=== PATIENT | female | born 1950 | race Hispanic/Latino ===

== ENCOUNTER → 2019-10-29 | Outpatient (CLI) | payer MEDICARE ==
[2019-10-29 09:26] LABS: BASOPHILS % (AUTO) 0.5 % (0.0-5.0); EOSINOPHILS % (AUTO) 4.4 % (0.0-8.0); HEMATOCRIT 33.1 % (36-48); LYMPHOCYTES % (AUTO) 19.6 % (21.0-51.0); MEAN CORPUSCULAR HEMOGLOBIN 26.2 pg (27.0-33.0); MEAN CORPUSCULAR HGB CONC 31.1 g/dL (32.0-36.0); MEAN CORPUSCULAR VOLUME 84.2 fL (79-99); MONOCYTES % (AUTO) 6.5 % (3.0-13.0); NEUTROPHILS % (AUTO) 68.8 % (40.0-77.0); PLATELET COUNT (AUTO) 195 K/uL (130-400); RED BLOOD CELL COUNT(AUTO) 3.93 MIL/uL (4.00-5.50); RED CELL DISTRIBUTION WIDTH 19.1 % (11.0-15.5); WHITE BLOOD COUNT (AUTO) 8.6 K/uL (4.8-10.8)
[2019-10-29 09:31] LABS: APPEARANCE,URINE Clear (CLEAR); BILIRUBIN,URINE Negative (NEGATIVE); COLOR,URINE Yellow (YELLOW); GLUCOSE, URINE (UA) Negative (NEGATIVE); KETONES,URINE Negative (NEGATIVE); LEUKOCYTE ESTERASE ,URINE Negative (NEGATIVE); NITRATE,URINE Negative (NEGATIVE); OCCULT BLOOD,URINE Negative (NEGATIVE); PH,URINE 5.5 (5.0-8.0); PROTEIN,URINE 300 mg/dL (NEGATIVE); UROBILINOGEN,URINE 0.2 mg/dL (0.2-1.0)
[2019-10-29 09:36] LABS: HEMOGLOBIN A1C 7.9 % (4.0-6.0)
[2019-10-29 09:49] LABS: ALBUMIN 2.7 g/dL (3.5-5.0); BILIRUBIN,TOTAL 0.3 mg/dL (0.2-1.0); CREATININE 2.6 mg/dL (0.5-1.5); POTASSIUM 4.8 mmol/L (3.5-5.1); TOTAL PROTEIN, SERUM 6.7 g/dL (6.0-8.3)
[2019-10-29 09:53] LABS: BACTERIA,URINE Rare /HPF (None Seen); RBC,URINE 0-1 /HPF (0-1); SQUAMOUS EPITHELIAL CELL,UR Rare /HPF (0-2)
== END | disposition home or self-care (01) ==
LOC: LAB 08:38
PROVIDERS: ATTEND Internal Medicine Nephrology
DX: E11.22 Type 2 diabetes mellitus with diabetic chronic kidney disease (principal); N18.4 Chronic kidney disease, stage 4 (severe)
CPT/HCPCS: 36415; 80053; 80061; 81001; 82043; 83036; 85025

== ENCOUNTER 2020-07-14 21:35 | Inpatient (IN) | payer MEDICARE ==
[~2020-07-14] VITALS: Ht 160 cm; Wt 83.7 kg
[2020-07-14] MEDS ORDERED: ONDANSETRON 4MG INJ ONE (22:06)
[2020-07-14] MEDS ORDERED: 0.9%NACL 1000ML 1,000 ML IV ONE (22:07)
[2020-07-14 22:13] LABS: BASOPHILS % (AUTO) 0.6 % (0.0-5.0); EOSINOPHILS % (AUTO) 2.8 % (0.0-8.0); HEMATOCRIT 39.3 % (36-48); LYMPHOCYTES % (AUTO) 15.3 % (21.0-51.0); MEAN CORPUSCULAR HEMOGLOBIN 28.2 pg (27.0-33.0); MEAN CORPUSCULAR HGB CONC 32.8 g/dL (32.0-36.0); MONOCYTES % (AUTO) 7.6 % (3.0-13.0); NEUTROPHILS % (AUTO) 73.5 % (40.0-77.0); PLATELET COUNT (AUTO) 201 K/uL (130-400); RED BLOOD CELL COUNT(AUTO) 4.57 MIL/uL (4.00-5.50); RED CELL DISTRIBUTION WIDTH 18.7 % (11.0-15.5); WHITE BLOOD COUNT (AUTO) 8.6 K/uL (4.8-10.8)
[2020-07-14] MEDS ORDERED: ACETAMINOPHEN 500 MG TABLET ONE (22:22)
[2020-07-14 22:26] LABS: CREATININE 3.1 mg/dL (0.5-1.5); POTASSIUM 3.5 mmol/L (3.5-5.1)
[2020-07-14 22:30] LABS: ALBUMIN 3.8 g/dL (3.5-5.0); BILIRUBIN,TOTAL 0.4 mg/dL (0.2-1.0); INR 1.03 (0.85-1.15); PROTHROMBIN TIME 11.2 SEC (9.6-11.6); TOTAL PROTEIN, SERUM 8.3 g/dL (6.0-8.3)
[2020-07-14 22:31] LABS: PARTIAL THROMBOPLASTIN TIME 28.9 SEC (26.3-35.5)
[2020-07-14] MEDS ORDERED: LACTULOSE 20 GM/30 ML UDCUP ONE (22:54)
[2020-07-14] MEDS ORDERED: ASPIRIN 325 MG TABLET ONE (23:11)
[2020-07-15] VITALS (7 sets, daily range): BP systolic 126–179; BP diastolic 50–76
[2020-07-15 03:36] LABS: APPEARANCE,URINE Clear (CLEAR); BILIRUBIN,URINE Negative (NEGATIVE); COLOR,URINE Yellow (YELLOW); GLUCOSE, URINE (UA) Negative (NEGATIVE); KETONES,URINE Negative (NEGATIVE); LEUKOCYTE ESTERASE ,URINE Trace (NEGATIVE); NITRATE,URINE Negative (NEGATIVE); OCCULT BLOOD,URINE Negative (NEGATIVE); PROTEIN,URINE 300 mg/dL (NEGATIVE); UROBILINOGEN,URINE 0.2 mg/dL (0.2-1.0)
[2020-07-15 03:43] LABS: BACTERIA,URINE None Seen /HPF (None Seen)
[2020-07-15 03:44] LABS: RBC,URINE None Seen /HPF (0-1); SQUAMOUS EPITHELIAL CELL,UR Few /HPF (0-2); WBC,URINE 0-1 /HPF (0-1)
[2020-07-15 03:55] LABS: BASOPHILS % (AUTO) 0.7 % (0.0-5.0); EOSINOPHILS % (AUTO) 2.8 % (0.0-8.0); LYMPHOCYTES % (AUTO) 18.4 % (21.0-51.0); MEAN CORPUSCULAR HEMOGLOBIN 28.1 pg (27.0-33.0); MEAN CORPUSCULAR HGB CONC 32.6 g/dL (32.0-36.0); MEAN CORPUSCULAR VOLUME 86.1 fL (79-99); NEUTROPHILS % (AUTO) 66.9 % (40.0-77.0); PLATELET COUNT (AUTO) 185 K/uL (130-400); RED BLOOD CELL COUNT(AUTO) 3.95 MIL/uL (4.00-5.50); RED CELL DISTRIBUTION WIDTH 18.4 % (11.0-15.5); WHITE BLOOD COUNT (AUTO) 8.6 K/uL (4.8-10.8)
[2020-07-15 04:24] LABS: ALBUMIN 3.2 g/dL (3.5-5.0); BILIRUBIN,TOTAL 0.4 mg/dL (0.2-1.0); CREATININE 3.3 mg/dL (0.5-1.5); POTASSIUM 3.5 mmol/L (3.5-5.1); TOTAL PROTEIN, SERUM 7.3 g/dL (6.0-8.3)
[2020-07-15] MEDS: LACTULOSE 20 GM/30 ML UDCUP PO SCH ×3 (06:00→17:34)
[2020-07-15] MEDS ORDERED: METOCLOPRAMIDE 10 MG TABLET PO SCH (12:00)
[2020-07-15] MEDS ORDERED: ONDANSETRON 4MG INJ IVP PRN (12:00)
[2020-07-15] MEDS ORDERED: PANTOPRAZOLE 40 MG/VIAL ONE (12:36)
[2020-07-15] MEDS: PANTOPRAZOLE 40 MG/VIAL IVP SCH (12:37)
[2020-07-15] MEDS: CEFTRIAXONE 1G VIAL IVP SCH (12:38)
[2020-07-15] MEDS: METRONIDAZOLE 500 MG TABLET PO SCH ×3 (12:38→23:58)
[2020-07-15] MEDS: METOCLOPRAMIDE 5 MG TABLET PO SCH (17:33)
[2020-07-15] MEDS: 1/2 NS 1000ML 1,000 ML IV SCH (17:34)
[2020-07-15] MEDS: HYDRALAZINE 25MG TABLET PO SCH (23:00)
[2020-07-15] MEDS: CLONIDINE HCL 0.1 MG TABLET PO PRN (23:59)
[2020-07-16] VITALS (7 sets, daily range): BP systolic 137–179; BP diastolic 67–76
[2020-07-16] MEDS: LACTULOSE 20 GM/30 ML UDCUP PO SCH ×4 (06:00→18:00)
[2020-07-16] MEDS: CLONIDINE HCL 0.1 MG TABLET PO PRN (06:03)
[2020-07-16 06:09] LABS: BASOPHILS % (AUTO) 0.6 % (0.0-5.0); EOSINOPHILS % (AUTO) 3.7 % (0.0-8.0); HEMATOCRIT 35.7 % (36-48); LYMPHOCYTES % (AUTO) 17.4 % (21.0-51.0); MEAN CORPUSCULAR HEMOGLOBIN 29.1 pg (27.0-33.0); MEAN CORPUSCULAR HGB CONC 33.1 g/dL (32.0-36.0); MEAN CORPUSCULAR VOLUME 87.9 fL (79-99); MONOCYTES % (AUTO) 10.5 % (3.0-13.0); NEUTROPHILS % (AUTO) 67.6 % (40.0-77.0); PLATELET COUNT (AUTO) 191 K/uL (130-400); RED BLOOD CELL COUNT(AUTO) 4.06 MIL/uL (4.00-5.50); RED CELL DISTRIBUTION WIDTH 19.1 % (11.0-15.5); WHITE BLOOD COUNT (AUTO) 8.1 K/uL (4.8-10.8)
[2020-07-16 06:31] LABS: ALBUMIN 3.2 g/dL (3.5-5.0); BILIRUBIN,DIRECT 0.1 mg/dL (0.0-0.3); BILIRUBIN,TOTAL 0.3 mg/dL (0.2-1.0); CREATININE 4.3 mg/dL (0.5-1.5); PHOSPHORUS 5.6 mg/dL (2.5-4.9); POTASSIUM 3.4 mmol/L (3.5-5.1); TOTAL PROTEIN, SERUM 6.9 g/dL (6.0-8.3)
[2020-07-16] MEDS ORDERED: PANTOPRAZOLE 40 MG/VIAL ONE (10:15)
[2020-07-16] MEDS: CEFTRIAXONE 1G VIAL IVP SCH (10:17)
[2020-07-16] MEDS: PANTOPRAZOLE 40 MG/VIAL IVP SCH (10:17)
[2020-07-16] MEDS ORDERED: 0.9%NACL 1000ML IV PRN (11:30)
[2020-07-16] MEDS ORDERED: ALBUMIN FOR BP SUPPORT MISC PRN (11:30)
[2020-07-16] MEDS ORDERED: HEPARIN 5,000 UNIT VIAL IJ PRN ×2 (11:30)
[2020-07-16] MEDS ORDERED: NITROGLYCERIN 0.4 MG SL TAB SL PRN (11:30)
[2020-07-16] MEDS ORDERED: ACETAMINOPHEN 325 MG TAB PO PRN (11:30)
[2020-07-16] MEDS ORDERED: 0.9%NACL 1000ML 1,000 ML IV PRN (11:30)
[2020-07-16] MEDS ORDERED: LIDOCAINE HCL-MPF 1% 2ML VIAL IJ PRN (11:30)
[2020-07-16] MEDS: METOCLOPRAMIDE 5 MG TABLET PO SCH ×3 (12:00→18:39)
[2020-07-16] MEDS: LISINOPRIL 20 MG TABLET PO SCH (16:07)
[2020-07-16] MEDS: ISOSORBIDE MONO 30MG SR TAB PO SCH (16:08)
[2020-07-16] MEDS: HYDRALAZINE 25MG TABLET PO SCH ×4 (16:08→21:19)
[2020-07-16] MEDS: METRONIDAZOLE 500 MG TABLET PO SCH ×2 (16:08→18:39)
[2020-07-16] MEDS: 1/2 NS 1000ML 1,000 ML IV SCH ×2 (16:09→20:48)
[2020-07-17] VITALS (7 sets, daily range): BP systolic 144–180; BP diastolic 72–92
[2020-07-17] MEDS: LACTULOSE 20 GM/30 ML UDCUP PO SCH ×6 (00:14→18:00)
[2020-07-17] MEDS: METRONIDAZOLE 500 MG TABLET PO SCH (00:14)
[2020-07-17] MEDS: CLONIDINE HCL 0.1 MG TABLET PO PRN ×2 (00:15→04:12)
[2020-07-17 06:51] LABS: HEMATOCRIT 41.7 % (36-48); MEAN CORPUSCULAR HEMOGLOBIN 28.4 pg (27.0-33.0); MEAN CORPUSCULAR HGB CONC 31.9 g/dL (32.0-36.0); MEAN CORPUSCULAR VOLUME 89.1 fL (79-99); PLATELET COUNT (AUTO) 189 K/uL (130-400); RED BLOOD CELL COUNT(AUTO) 4.68 MIL/uL (4.00-5.50); RED CELL DISTRIBUTION WIDTH 19.7 % (11.0-15.5); WHITE BLOOD COUNT (AUTO) 10.2 K/uL (4.8-10.8)
[2020-07-17 07:13] LABS: HEPATITIS A ANTIBODY IGM Negative (Negative); HEPATITIS B CORE IGM Negative (Negative); HEPATITIS Bs ANTIGEN SCREEN P Negative (Negative)
[2020-07-17 08:26] LABS: BASOPHILS % (MANUAL) 1 % (0-2); LYMPHOCYTES % (MANUAL) 4 % (22-44); MAN.DIFF COMMENT-IMPRESSION MANUAL DIFFERENTIAL; MONOCYTES % (MANUAL) 7 % (2-9); SEGMENTED NEUTROPHILS % 88 % (40-70)
[2020-07-17 08:27] LABS: PLATELET MORPHOLOGY COMMENT ADEQUATE
[2020-07-17] MEDS: LISINOPRIL 20 MG TABLET PO SCH (09:00)
[2020-07-17] MEDS ORDERED: PANTOPRAZOLE 40 MG/VIAL ONE (10:01)
[2020-07-17] MEDS: METOCLOPRAMIDE 5 MG TABLET PO SCH ×3 (10:09→17:00)
[2020-07-17] MEDS: ISOSORBIDE MONO 30MG SR TAB PO SCH (10:10)
[2020-07-17] MEDS: HYDRALAZINE 25MG TABLET PO SCH ×4 (10:10→21:15)
[2020-07-17] MEDS: CEFTRIAXONE 1G VIAL IVP SCH (10:11)
[2020-07-17] MEDS: 1/2 NS 1000ML 1,000 ML IV SCH (10:12)
[2020-07-17] MEDS: PANTOPRAZOLE 40 MG/VIAL IVP SCH (10:12)
[2020-07-17 11:25] LABS: POTASSIUM 3.9 mmol/L (3.5-5.1)
[2020-07-17 11:32] LABS: ALBUMIN 3.8 g/dL (3.5-5.0); BILIRUBIN,TOTAL 0.5 mg/dL (0.2-1.0); TOTAL PROTEIN, SERUM 8.1 g/dL (6.0-8.3)
[2020-07-18] VITALS (7 sets, daily range): BP systolic 158–204; BP diastolic 73–119
[2020-07-18] MEDS ORDERED: HYDRALAZINE 20MG/ML VIAL IV SCH (05:15)
[2020-07-18 05:27] LABS: POTASSIUM 3.4 mmol/L (3.5-5.1)
[2020-07-18 05:31] LABS: ALBUMIN 3.6 g/dL (3.5-5.0); BILIRUBIN,TOTAL 0.5 mg/dL (0.2-1.0); TOTAL PROTEIN, SERUM 7.9 g/dL (6.0-8.3)
[2020-07-18] MEDS: HYDRALAZINE 20MG/ML VIAL IV PRN ×2 (05:34→17:09)
[2020-07-18] MEDS: LACTULOSE 20 GM/30 ML UDCUP PO SCH ×4 (06:00→17:39)
[2020-07-18] MEDS: METOCLOPRAMIDE 5 MG TABLET PO SCH ×3 (08:00→17:00)
[2020-07-18] MEDS: PANTOPRAZOLE 40 MG/VIAL IVP SCH (09:00)
[2020-07-18] MEDS: HYDRALAZINE 25MG TABLET PO SCH ×4 (09:00→21:00)
[2020-07-18] MEDS: ISOSORBIDE MONO 30MG SR TAB PO SCH (09:00)
[2020-07-18] MEDS: CEFTRIAXONE 1G VIAL IVP SCH (09:00)
[2020-07-18] MEDS: LISINOPRIL 20 MG TABLET PO SCH (09:00)
[2020-07-18] MEDS: METOPROLOL TARTRATE 50 MG TAB PO SCH ×2 (09:00→21:00)
[2020-07-18] MEDS: METOPROLOL TARTRATE 1 MG/ML 5ML VIAL IV SCH ×3 (11:03→20:10)
[2020-07-18] MEDS: CLONIDINE 0.1 MG/ 24 HR PATCH TD SCH (11:03)
[2020-07-18] MEDS: HYDRALAZINE 20MG/ML VIAL IV SCH (17:30)
[2020-07-19] VITALS (7 sets, daily range): BP systolic 113–163; BP diastolic 46–80
[2020-07-19] MEDS: METOPROLOL TARTRATE 1 MG/ML 5ML VIAL IV SCH ×6 (00:17→23:59)
[2020-07-19] MEDS: HYDRALAZINE 20MG/ML VIAL IV SCH ×4 (01:51→13:30)
[2020-07-19] MEDS: LACTULOSE 20 GM/30 ML UDCUP PO SCH ×4 (06:00→18:00)
[2020-07-19] MEDS: METOCLOPRAMIDE 5 MG TABLET PO SCH ×3 (08:00→17:00)
[2020-07-19] MEDS ORDERED: PANTOPRAZOLE 40 MG/VIAL ONE (08:42)
[2020-07-19] MEDS: CEFTRIAXONE 1G VIAL IVP SCH (08:53)
[2020-07-19] MEDS: PANTOPRAZOLE 40 MG/VIAL IVP SCH (08:53)
[2020-07-19] MEDS: CLONIDINE 0.1 MG/ 24 HR PATCH TD SCH (08:54)
[2020-07-19] MEDS: ISOSORBIDE MONO 30MG SR TAB PO SCH (09:00)
[2020-07-19] MEDS: LISINOPRIL 20 MG TABLET PO SCH (09:00)
[2020-07-19] MEDS: METOPROLOL TARTRATE 50 MG TAB PO SCH ×2 (09:00→21:00)
[2020-07-19] MEDS: HYDRALAZINE 25MG TABLET PO SCH ×4 (09:00→21:00)
[2020-07-19 09:58] LABS: HEMATOCRIT 43.4 % (36-48); MEAN CORPUSCULAR HEMOGLOBIN 28.6 pg (27.0-33.0); MEAN CORPUSCULAR VOLUME 89.3 fL (79-99); PLATELET COUNT (AUTO) 186 K/uL (130-400); RED BLOOD CELL COUNT(AUTO) 4.86 MIL/uL (4.00-5.50); RED CELL DISTRIBUTION WIDTH 19.9 % (11.0-15.5); WHITE BLOOD COUNT (AUTO) 13.7 K/uL (4.8-10.8)
[2020-07-19 09:59] LABS: CREATININE 6.2 mg/dL (0.5-1.5); POTASSIUM 3.8 mmol/L (3.5-5.1)
[2020-07-19 10:05] LABS: ALBUMIN 3.5 g/dL (3.5-5.0); BILIRUBIN,TOTAL 0.4 mg/dL (0.2-1.0); TOTAL PROTEIN, SERUM 7.9 g/dL (6.0-8.3)
[2020-07-19 10:34] LABS: LYMPHOCYTES % (MANUAL) 8 % (22-44); MAN.DIFF COMMENT-IMPRESSION MANUAL DIFFERENTIAL; MONOCYTES % (MANUAL) 6 % (2-9); SEGMENTED NEUTROPHILS % 86 % (40-70)
[2020-07-19 10:35] LABS: PLATELET MORPHOLOGY COMMENT ADEQUATE
[2020-07-20] MEDS: METOPROLOL TARTRATE 1 MG/ML 5ML VIAL IV SCH ×5 (00:08→20:00)
[2020-07-20] MEDS: HYDRALAZINE 20MG/ML VIAL IV SCH ×3 (02:47→10:59)
[2020-07-20 04:27] VITALS: BP 163/75
[2020-07-20] MEDS: LACTULOSE 20 GM/30 ML UDCUP PO SCH ×4 (06:29→18:00)
[2020-07-20 08:00] VITALS: BP 160/70
[2020-07-20] MEDS: METOCLOPRAMIDE 5 MG TABLET PO SCH ×3 (08:00→16:33)
[2020-07-20] MEDS: LISINOPRIL 20 MG TABLET PO SCH (09:00)
[2020-07-20] MEDS: ISOSORBIDE MONO 30MG SR TAB PO SCH (09:00)
[2020-07-20] MEDS: METOPROLOL TARTRATE 50 MG TAB PO SCH ×2 (09:00→21:23)
[2020-07-20] MEDS: HYDRALAZINE 25MG TABLET PO SCH ×4 (09:00→21:00)
[2020-07-20] MEDS ORDERED: PANTOPRAZOLE 40 MG/VIAL ONE (09:18)
[2020-07-20] MEDS: PANTOPRAZOLE 40 MG/VIAL IVP SCH (09:28)
[2020-07-20] MEDS: CEFTRIAXONE 1G VIAL IVP SCH (09:28)
[2020-07-20] MEDS: CLONIDINE 0.1 MG/ 24 HR PATCH TD SCH (09:29)
[2020-07-20 12:00] VITALS: BP 169/76
[2020-07-20 16:00] VITALS: BP 130/48
[2020-07-20] MEDS ORDERED: HYDRALAZINE 20MG/ML VIAL IV PRN (16:15)
[2020-07-20 20:05] VITALS: BP 154/75
[2020-07-20] MEDS: LABETALOL HCL 100 MG TABLET PO SCH (21:00)
[2020-07-20] MEDS: AMLODIPINE 5 MG TAB PO SCH (21:00)
[2020-07-20] MEDS ORDERED: DEXTROSE 50%-WATER 50 ML DISP.SYRIN IV PRN (21:00)
[2020-07-20] MEDS ORDERED: GLUCAGON 1MG KIT 1 MG ML IM PRN (21:00)
[2020-07-20] MEDS: INSULIN LISPRO 100 UNIT/ML 3ML SQ SCH (21:26)
[2020-07-21] VITALS (7 sets, daily range): BP systolic 113–160; BP diastolic 55–81
[2020-07-21] MEDS: LACTULOSE 20 GM/30 ML UDCUP PO SCH ×4 (01:13→18:00)
[2020-07-21] MEDS: METOPROLOL TARTRATE 1 MG/ML 5ML VIAL IV SCH ×6 (04:00→20:00)
[2020-07-21 05:06] LABS: ALANINE AMINOTRANSFERASE 27 U/L (12-78); ALBUMIN 3.3 g/dL (3.5-5.0); ASPARTATE AMINOTRANSFERASE 37 U/L (10-37); BILIRUBIN,TOTAL 0.5 mg/dL (0.2-1.0); CARBON DIOXIDE 26 mmol/L (21-32); CHLORIDE 102 mmol/L (101-111); CREATININE 6.3 mg/dL (0.5-1.5); GLOMERULAR FILTR. RATE CALC 7 mL/min (>60); POTASSIUM 3.3 mmol/L (3.5-5.1); SODIUM SERUM 142 mmol/L (136-145); TOTAL PROTEIN, SERUM 7.6 g/dL (6.0-8.3); UREA NITROGEN, BLOOD 65 mg/dL (7-18)
[2020-07-21 05:13] LABS: AMMONIA < 10 umol/L (11-32)
[2020-07-21 05:33] LABS: GLUCOSE,RANDOM 128 mg/dL (70-105)
[2020-07-21] MEDS: INSULIN LISPRO 100 UNIT/ML 3ML SQ SCH ×3 (05:37→21:15)
[2020-07-21] MEDS: METOPROLOL TARTRATE 50 MG TAB PO SCH ×2 (09:00→21:00)
[2020-07-21] MEDS: ISOSORBIDE MONO 30MG SR TAB PO SCH (09:00)
[2020-07-21] MEDS: CLONIDINE 0.1 MG/ 24 HR PATCH TD SCH (09:00)
[2020-07-21] MEDS: HYDRALAZINE 25MG TABLET PO SCH ×4 (09:00→21:00)
[2020-07-21] MEDS: LABETALOL HCL 100 MG TABLET PO SCH ×2 (09:00→21:00)
[2020-07-21] MEDS ORDERED: PANTOPRAZOLE 40 MG/VIAL ONE (16:47)
[2020-07-21] MEDS: METOCLOPRAMIDE 5 MG TABLET PO SCH (16:50)
[2020-07-21] MEDS: LISINOPRIL 20 MG TABLET PO SCH (16:50)
[2020-07-21] MEDS: PANTOPRAZOLE 40 MG/VIAL IVP SCH (16:51)
[2020-07-21] MEDS: CEFTRIAXONE 1G VIAL IVP SCH (16:51)
[2020-07-21] MEDS: AMLODIPINE 5 MG TAB PO SCH (21:12)
[2020-07-22 03:54] VITALS: BP 139/72
[2020-07-22] MEDS: METOPROLOL TARTRATE 1 MG/ML 5ML VIAL IV SCH ×4 (04:00→12:00)
[2020-07-22] MEDS: LACTULOSE 20 GM/30 ML UDCUP PO SCH ×3 (06:00→12:00)
[2020-07-22] MEDS: INSULIN LISPRO 100 UNIT/ML 3ML SQ SCH ×2 (06:26→11:30)
[2020-07-22] MEDS: HYDRALAZINE 25MG TABLET PO SCH ×2 (08:39→13:00)
[2020-07-22] MEDS: ISOSORBIDE MONO 30MG SR TAB PO SCH (08:39)
[2020-07-22] MEDS: LABETALOL HCL 100 MG TABLET PO SCH (08:40)
[2020-07-22] MEDS: CLONIDINE 0.1 MG/ 24 HR PATCH TD SCH (08:43)
[2020-07-22] MEDS: METOPROLOL TARTRATE 50 MG TAB PO SCH (08:44)
[2020-07-22] MEDS: METOCLOPRAMIDE 5 MG TABLET PO SCH ×2 (09:34→12:00)
[2020-07-22] MEDS: CEFTRIAXONE 1G VIAL IVP SCH (09:34)
[2020-07-22] MEDS: LISINOPRIL 20 MG TABLET PO SCH (09:34)
[2020-07-22] MEDS ORDERED: PANTOPRAZOLE 40 MG/VIAL ONE (09:36)
[2020-07-22] MEDS: PANTOPRAZOLE 40 MG/VIAL IVP SCH (09:36)
[2020-07-22 09:54] VITALS: BP 121/69
[2020-07-22] MEDS ORDERED: LEVOTHYROXINE 75 MCG TABLET PO SCH (14:15)
[2020-07-22] MEDS ORDERED: INSULIN HUMULIN 70/30 100 UNIT/ML 3ML SQ SCH (16:30)
[2020-07-23] MEDS ORDERED: LACTULOSE 20 GM/30 ML UDCUP PO SCH (09:00)
== END 2020-07-22 16:00 | disposition home or self-care (01) | DRG 444 ==
LOC: EDH 21:35 → OBSVTOIN 23:27 → EDHIP 23:27 → 4DH 07-15 00:23
PROVIDERS: ADMIT Internal Medicine; ATTEND Internal Medicine
PROC: 5A1D70Z Performance of Urinary Filtration, Intermittent, Less than 6 Hours Per Day (ICD-10-PCS; principal; 2020-07-16)
PROC: 5A1D70Z Performance of Urinary Filtration, Intermittent, Less than 6 Hours Per Day (ICD-10-PCS; 2020-07-17)
PROC: 5A1D70Z Performance of Urinary Filtration, Intermittent, Less than 6 Hours Per Day (ICD-10-PCS; 2020-07-21)
DX: K80.41 Calculus of bile duct with cholecystitis, unspecified, with obstruction (principal); N18.6 End stage renal disease; G93.41 Metabolic encephalopathy; J96.90 Respiratory failure, unspecified, unspecified whether with hypoxia or hypercapnia; N17.9 Acute kidney failure, unspecified; I13.2 Hypertensive heart and chronic kidney disease with heart failure and with stage 5 chronic kidney disease, or end stage renal disease; Z16.24 Resistance to multiple antibiotics; E11.22 Type 2 diabetes mellitus with diabetic chronic kidney disease; E11.51 Type 2 diabetes mellitus with diabetic peripheral angiopathy without gangrene; E11.621 Type 2 diabetes mellitus with foot ulcer; I50.9 Heart failure, unspecified; K74.60 Unspecified cirrhosis of liver; K59.00 Constipation, unspecified; E78.00 Pure hypercholesterolemia, unspecified; E78.5 Hyperlipidemia, unspecified; F32.9 Major depressive disorder, single episode, unspecified; H40.9 Unspecified glaucoma; Z79.4 Long term (current) use of insulin; Z99.2 Dependence on renal dialysis; Z20.822 Contact with and (suspected) exposure to COVID-19; Z88.8 Allergy status to other drugs, medicaments and biological substances; E66.9 Obesity, unspecified; Z68.32 Body mass index [BMI] 32.0-32.9, adult; Z89.421 Acquired absence of other right toe(s)
CPT/HCPCS: 36415; 70450; 71045; 74176; 74181; 76700; 80048; 80053; 80074; 80076; 81001; 82140; 82948; 83690; 83880; 84100; 84484; 85025; 85610; 85730; 87426; 90935; 93005; 93306; 93356; 97039; 99291; C9113; G0378; J0360; J0696; J1644; J2405; J3490; J7030; U0003